=== PATIENT | female | born 1980 | race Two or more races ===

== ENCOUNTER 2022-10-21 14:02 | Emergency (ER) | payer OTHER ==
[~2022-10-21] VITALS: Ht 157.5 cm; Wt 83.9 kg
[2022-10-21] MEDS ORDERED: SYNTHROID125 MCG PO (14:22)
== END 2022-10-21 18:13 | disposition home or self-care (01) ==
LOC: ER 14:02
DX: R05.9 Cough, unspecified (principal); Z20.822 Contact with and (suspected) exposure to COVID-19